=== PATIENT | female | born 1995 | race Caucasian/White ===

== ENCOUNTER → 2017-10-23 10:50 | Outpatient (CLI) | payer OTHER, MEDICAID, SELFPAY ==
[2017-10-23 15:49] LABS: HIV 1 and 2 Antibody NEGATIVE (NEGATIVE); Hep C Virus Ab w/Reflex Quant NEGATIVE s/c (NEGATIVE)
[2017-10-27 15:49] LABS: HSV 2 IGG AB < 0.90 index (< 0.90); HSV1IGG 6.94 index (< 0.90)
== END ==
PROVIDERS: PCP Internal Medicine; Visit Provider Obstetrics & Gynecology
DX: Z34.91 Encounter for supervision of normal pregnancy, unspecified, first trimester (principal)
CPT/HCPCS: 36415; 86695; 86696; 86703; 86787; 86803; 86850; 86900; 86901; 87086

== ENCOUNTER 2017-11-20 15:59 | Observation (INO) | payer OTHER, MEDICAID, SELFPAY ==
[2017-11-20] MEDS: LACTATED RINGERS 1,000 ML 1000 ML IV (16:45)
[2017-11-20] MEDS: ACETAMINOPHEN 325 MG TABLET 650 MG PO (17:16)
[2017-11-20] MEDS: ONDANSETRON 4 MG/2 ML INJ IV (17:16)
== END 2017-11-20 18:10 | disposition home or self-care (01) ==
PROVIDERS: Admitting Provider Internal Medicine; Family Provider Internal Medicine; PCP Internal Medicine; Visit Provider Internal Medicine
DX: O21.0 Mild hyperemesis gravidarum (principal); Z3A.11 11 weeks gestation of pregnancy
CPT/HCPCS: 96360; G0378; G0379; J2405

== ENCOUNTER → 2018-01-07 15:00 | Oncology outpatient (ONC) | payer OTHER, MEDICAID, SELFPAY ==
[2017-12-01 15:45] VITALS: BP 122/69; PULSE 88; RESP 16; TEMP 37; O2SAT 95
[2017-12-01] MEDS: ONDANSETRON 4 MG/2 ML INJ IV (15:50)
[2017-12-01] MEDS: LACTATED RINGERS 1,000 ML 1000 ML IV (15:50)
[2017-12-07 15:11] VITALS: BP 118/69; PULSE 83; RESP 16; TEMP 36.8; O2SAT 97
[2017-12-07] MEDS: LACTATED RINGERS 1,000 ML 1000 ML IV (15:17)
[2017-12-07] MEDS: ONDANSETRON 4 MG/2 ML INJ IV (15:36)
[2017-12-15] MEDS: LACTATED RINGERS 1,000 ML 1000 ML IV (15:20)
[2017-12-15] MEDS: ONDANSETRON 4 MG/2 ML INJ IV (15:20)
[2017-12-15 15:52] VITALS: BP 108/77; PULSE 84; RESP 16; TEMP 36.7; O2SAT 97
[2017-12-21] MEDS: LACTATED RINGERS 1,000 ML 1000 ML IV (11:45)
[2017-12-21] MEDS: ONDANSETRON 4 MG/2 ML INJ IV (11:47)
[2017-12-21 11:57] VITALS: BP 111/66; PULSE 79; RESP 16; TEMP 37.1; O2SAT 96
[2017-12-25 15:33] VITALS: BP 116/69; PULSE 82; RESP 16; TEMP 36.8; O2SAT 96
[2017-12-25] MEDS: LACTATED RINGERS 1,000 ML 1000 ML IV (15:35)
[2017-12-25] MEDS: ONDANSETRON 4 MG/2 ML INJ IV (15:36)
[2017-12-29 09:17] VITALS: BP 115/69; PULSE 86; RESP 16; TEMP 36.8; O2SAT 94
[2017-12-29] MEDS: ONDANSETRON 4 MG/2 ML INJ IV (09:41)
[2017-12-29] MEDS: LACTATED RINGERS 1,000 ML 1000 ML IV (09:44)
[2018-01-07] MEDS: LACTATED RINGERS 1,000 ML 1000 ML IV (15:57)
[2018-01-07] MEDS: ONDANSETRON 4 MG/2 ML INJ IV (16:03)
[2018-01-07 16:26] VITALS: BP 119/62; PULSE 80; RESP 16; TEMP 36.6; O2SAT 98
== END ==
PROVIDERS: Family Provider Internal Medicine; PCP Internal Medicine; Visit Provider Specialist
DX: O21.0 Mild hyperemesis gravidarum (principal)
CPT/HCPCS: 96360; 96361; 96374; 96375; J2405

== ENCOUNTER → 2018-01-25 07:18 | Outpatient (CLI) | payer OTHER, MEDICAID, SELFPAY ==
--- NOTE | 2018-01-25 07:19 | DI.US.S_ITS ---
PROCEDURE: US OB >= 14 WEEKS FETUS INDICATIONS: ANATOMY OUTSIDE/PRIOR DATING DATA: Last menstrual period (LMP): 09/02/17. LMP-based estimated date of delivery (CLAU): 06/09/18. First dating scan (date and location): 11/04/17. Estimated date of delivery (CLAU) from first dating scan: 06/08/18. TECHNIQUE: Real-time scanning was performed of the fetus, with image documentation and biometric measurements. Endovaginal scanning: None. COMPARISON: [facility], , OB >= 14 WEEKS FETUS, 12/29/2017, 8:33. FINDINGS: General: A single living intrauterine gestation is present. Presentation: Vertex Placenta: Placental position is anterior, without previa. Amniotic fluid index: 11.3 cm, normal range is 5-24 cm. heart rate: 133 beats per minute. Maternal cervical canal: 3.3 cm long. Normal lower limit is 2.5 cm. biometrics: Biparietal diameter: 4.8 cm, 20 weeks 4 days Head circumference: 18.4 cm, 20 weeks 5 days Abdominal circumference: 16.0 cm, 21 weeks one day Femur length: 3.4 cm, 20 week 5 day Estimated gestational age from initial scan: 20 week six-day Composite gestational age from present scan: 20 weeks 6 days Estimated weight and percentile: 382 g, 45% Measurement variability for biometric dating: +/- 7 days from 14 weeks to 15 weeks 6 days gestation, +/- 10 days from 16 weeks to 21 weeks 6 days gestation, +/- 2 weeks from 22 weeks to 27 weeks 6 days gestation, +/- 3 weeks for 28 weeks gestation or later. weight reference: 4500 g or EFW >90/95% is considered macrosomia or large for gestational age. EFW <10% is small for gestational age. EFW 5% or less is considered intra-uterine growth restriction. Anatomic survey: Neuro: Ventricles are non-dilated at less than 10 mm. Cisterna magna is normal at 3-11 mm. Cerebellum is normal in size and morphology. Nuchal skin fold: Normal at less than 6 mm between 14-21 weeks gestational age. Face: Nose and lips, facial profile are normal. Spine: No evidence for spina bifida. Heart: 4-chambered heart is present, with normal ventricular outflow tracts. Diaphragm: Diaphragm is intact. Stomach: Left-sided stomach is present. Kidneys: No hydronephrosis. Normal is less than 5 mm in 2nd trimester, less than 7 mm in 3rd trimester. Cord: 3-vessel cord has orthotopic insertion. Bladder: Normal in size. Extremities: All 4 extremities identified. IMPRESSION: Single live intrauterine with fetus in vertex presentation. heart rate is 133 beats per minute. Estimated gestational age infant current study is 20 weeks 6 days. Normal anatomic survey. Dictated by: Blaine Whatley M.D. on 01/25/2018 at 8:28 Approved by: Blaine Whatley M.D. on 01/25/2018 at 9:08
== END ==
PROVIDERS: Family Provider Internal Medicine; PCP Internal Medicine; Visit Provider Obstetrics & Gynecology
DX: Z34.02 Encounter for supervision of normal first pregnancy, second trimester (principal); Z3A.20 20 weeks gestation of pregnancy
CPT/HCPCS: 76811

== ENCOUNTER → 2018-01-26 09:12 | Outpatient (CLI) | payer OTHER, MEDICAID, SELFPAY ==
[2018-02-01 16:26] LABS: AFP, Serum 67.7 ng/mL; Calc Gestational Age 18.6; Cigarette Smoker NOT GIVEN; Donated Egg N; Donor Egg Age NOT GIVEN; Estriol, Free 1.95 ng/mL; Inhibin A, Dimeric 202 pg/mL; Maternal Ethnicity CAUCASIAN; Maternal Weight 154 lbs; Number of Fetuses 1; Previous Pregnancy Down Syndro N; hCG, MoM 2.91; hCG, Serum 64.1 IU/mL
== END ==
PROVIDERS: PCP Internal Medicine; Visit Provider Obstetrics & Gynecology
DX: Z34.92 Encounter for supervision of normal pregnancy, unspecified, second trimester (principal); Z3A.19 19 weeks gestation of pregnancy
CPT/HCPCS: 36415; 82105; 82677; 84702; 86336

== ENCOUNTER 2018-02-05 10:33 | Observation (INO) | payer OTHER, MEDICAID, SELFPAY ==
--- NOTE | 2018-02-05 | DI.US.S_ITS ---
PROCEDURE: US OB LIMITED INDICATIONS: vaginal bleeding at 22 weeks OUTSIDE/PRIOR DATING DATA: Last menstrual period (LMP): 09/02/17. LMP-based estimated date of delivery (CLAU): 06/09/18. First dating scan (date and location): 11/04/17, by Dr. Villalta. Estimated date of delivery (CLAU) from first dating scan: 06/08/18, by Dr. Villalta. TECHNIQUE: Real-time scanning was performed of the fetus, with image documentation. Endovaginal scanning: Not needed for this study COMPARISON: None. FINDINGS: A single living intrauterine gestation is present. Presentation: Vertex Placenta: Placental position is anterior, without previa. Amniotic fluid index: 13.6 cm, normal range is 5-24 cm. heart rate: 150 beats per minute. Maternal cervical canal: 3.4 cm long. Normal lower limit is 2.5 cm. Estimated gestational age from initial scan: 22 weeks 3 days. Note: No abruption or previa found. The inferior tip of the placenta is 2.8 cm from the internal os of the cervical canal. IMPRESSION: No source of current vaginal bleeding at approximately 22 weeks gestation. No abruption or placenta previa is present. Dictated by: Ephraim Ram M.D. on 02/05/2018 at 12:15 Approved by: Ephraim Ram M.D. on 02/05/2018 at 12:19
--- NOTE | 2018-02-05 11:17 | P.OP_ITS ---
Operative Date/Time/Diagnoses Date of procedure: 02/05/18 Time of procedure: 11:13 Pre-op diagnosis: Endometrial polyp Infertility Post-op diagnosis: same Procedure: D&C hysteroscopy Hysterosalpingogram Indications: Endometrial polyp on ultrasound Infertility Surgeon: Rosalba Villalta Anesthesia Type: General Operative Notes Findings: 6 week size slightly retroverted uterus Mid uterus anterior polyp Normal fallopian tube openings HSG Normal contours of the uterus. Spillage from both tubes Closure Type: not applicable Specimen(s): other (Fragments of endometrial polyp) Applied: catheter Estimated blood loss (mL): 10 Blood products transfused: none Procedure in detail: After informed consent was obtained, the patient was taken to the operating room where she was placed in the dorsal supine position. After adequate LMA general anesthesia was achieved, she was placed in the dorsal lithotomy position, and prepped and draped in the usual sterile fashion. A bivalve speculum was placed into the vagina. The anterior lip of the cervix was grasped with a single-tooth tenaculum. The hysterosalpingogram catheter passed easily into the endometrial cavity. The balloon was inflated with 3 cc of air. 15 cc of Isovue 300 were injected into the uterus under direct fluoroscopic examination. The contours of the uterus were normal. There was spillage from both tubes. The balloon was deflated. The hysterosalpingogram catheter was removed from the uterus. The cervix was further dilated to the #8 Hegar dilator. The hysteroscope passed easily into the endometrial cavity. Initial inspection with the hysteroscope revealed both fallopian tube ostia. There was an anterior endometrial polyp in the mid portion of the uterus. This was resected in 5 pieces with settings at 80 cut and 40 cautery. There was minimal amount of bleeding. Sharp curettage was performed to remove all of the remaining pieces. The instruments were removed from the uterus. The single- tooth tenaculum was removed from the anterior lip of the cervix. The bivalve speculum was removed from the vagina. Sponge, lap, and instrument counts were correct x2. The patient tolerated the procedure well, and was taken to PACU in stable condition. Complications: none Post-operative Condition: stable Disposition: PACU Plan for aftercare: Home after recovery
== END 2018-02-05 11:56 | disposition home or self-care (01) ==
PROVIDERS: Admitting Provider Obstetrics & Gynecology; PCP Internal Medicine; Visit Provider Obstetrics & Gynecology
DX: O46.92 Antepartum hemorrhage, unspecified, second trimester (principal); Z3A.22 22 weeks gestation of pregnancy
CPT/HCPCS: 59025; 76815; G0378; G0379

== ENCOUNTER → 2018-02-09 10:43 | Outpatient (CLI) | payer OTHER, MEDICAID, SELFPAY | PROVIDERS: Family Provider Internal Medicine; PCP Internal Medicine; Visit Provider Obstetrics & Gynecology | DX: R31.9 Hematuria, unspecified (principal) | CPT/HCPCS: 87086 ==

== ENCOUNTER → 2018-03-06 10:31 | Outpatient (CLI) | payer OTHER, MEDICAID, SELFPAY ==
[2018-03-06 12:29] LABS: Hematocrit 31.5 % (36-46); Hemoglobin 11.1 g/dL (12.0-16.0)
[2018-03-06 16:03] LABS: GTT (PREG) 1 Hour PP 50gm Dose 108 mg/dL (76-139)
== END ==
PROVIDERS: Family Provider Internal Medicine; PCP Internal Medicine; Visit Provider Obstetrics & Gynecology
DX: Z34.82 Encounter for supervision of other normal pregnancy, second trimester (principal)
CPT/HCPCS: 36415; 82950; 85014; 85018

== ENCOUNTER → 2018-05-12 08:26 | Outpatient (CLI) | payer OTHER, MEDICAID, SELFPAY ==
[2018-05-13 14:32] LABS: Strep Grp B PCR NEG for Grp B Strep
== END ==
PROVIDERS: Family Provider Internal Medicine; PCP Internal Medicine; Visit Provider Obstetrics & Gynecology
DX: Z34.03 Encounter for supervision of normal first pregnancy, third trimester (principal); Z3A.36 36 weeks gestation of pregnancy
CPT/HCPCS: 87653

== ENCOUNTER 2018-05-18 06:54 | Observation (INO) | payer OTHER, MEDICAID, SELFPAY | END 2018-05-18 09:03 | disposition home or self-care (01) | PROVIDERS: Admitting Provider Obstetrics & Gynecology; Family Provider Internal Medicine; PCP Internal Medicine; Visit Provider Obstetrics & Gynecology | DX: Z34.83 Encounter for supervision of other normal pregnancy, third trimester (principal); Z3A.36 36 weeks gestation of pregnancy | CPT/HCPCS: 59025; 59412; 76815; G0378; G0379 ==

== ENCOUNTER 2018-05-30 19:03 | Outpatient (CLI) | payer OTHER, MEDICAID, SELFPAY ==
--- NOTE | 2018-05-31 10:38 | PM.OBTRLD ---
Visit Information Visit Information Date of evaluation: 05/30/18 Primary OB Provider: Rosalba Villalta On-call OB Provider: Carolyn Ferrer Reason for Evaluation: Yes rule out labor Vital Signs Vital Signs: 131/76, pulse 101 Review of Systems Review of Systems Patient complaining of contractions, no leakage of fluid, no decrease in movement. Evaluation Evaluation Baseline heart rate: 130 Variability: Moderate (11-25) monitor accelerations: Present monitor decelerations: Absent Contraction Frequency (minutes): 7 Uterine Contraction Intensity: Mild Category of Tracing: I Diagnosis, Plan/Disposition Final Diagnosis (1) Premature uterine contractions in third trimester, antepartum: Current Visit: No Status: Acute (2) 38 weeks gestation of : Current Visit: No Status: Acute Plan/Disposition Plan: Patient with mild contractions but not in labor. She was discharged home to return if she has rupture membranes, increased contractions, decreased movement.
== END 2018-05-30 20:05 | disposition home or self-care (01) ==
LOC: LABOR 19:46 → OB 06-02 13:12
PROVIDERS: Family Provider Internal Medicine; PCP Internal Medicine; Visit Provider Specialist
DX: O32.1XX0 Maternal care for breech presentation, not applicable or unspecified (principal); Z3A.38 38 weeks gestation of pregnancy
CPT/HCPCS: 59025; G0378; G0379

== ENCOUNTER 2018-06-04 05:48 | Inpatient (IN) | payer OTHER, MEDICAID, SELFPAY ==
[2018-06-04] VITALS (11 sets, daily range): BP systolic 98–129; BP diastolic 48–83; PULSE 77–92; RESP 12–18; TEMP 36.1–37.1; O2SAT 96–97
[2018-06-04 07:38] LABS: Add Manual Diff / Slide Review NO; Basophils Percent Auto 0.2 % (0-2); Eosinophils Percent Auto 0.7 % (2-4); Hematocrit 35.1 % (36-46); Hemoglobin 12.2 g/dL (12.0-16.0); Lymphocytes Percent Auto 20.3 % (25-40); Mean Corpuscular HGB Conc 34.6 % (30-36); Mean Corpuscular Hemoglobin 30.9 PG (26-34); Mean Corpuscular Volume 89.1 fL (80-100); Monocytes Percent Auto 7.2 % (3-14); Neutrophils Absolute Auto 7700 /uL (1500-7000); Neutrophils Percent Auto 71.6 % (50-75); Platelet Count 246 X10^3/uL (150-400); Red Blood Cell Count 3.94 X10^6/uL (4.0-5.2); Red Cell Distribution Width 14.2 % (11.6-14.8); White Blood Cell Count 10.7 X10^3/uL (4.5-11.0)
--- NOTE | 2018-06-04 07:50 | PM.PREOP ---
Pre-operative Note Interval Note Pre-op Check: Yes History & Physical Reviewed by Physician Changes: No
[2018-06-04] MEDS: CEFAZOLIN 2 GM/100 ML FROZ.PIGGY IV (08:00)
--- NOTE | 2018-06-04 08:30 | SUR.OPER ---
Supine on Padded OR bed, head on pillow, safety belt at thigh, arms secured on padded arm boards at <90 degrees abduction. Bump under right buttock. Legs uncrossed with pillow under knees, gel pad to heels, tape over blanket to lower legs.
[2018-06-04] MEDS: LACTATED RINGERS 1,000 ML 100 ML IV ×2 (08:56→14:42)
[2018-06-04] MEDS: KETOROLAC 30 MG/ML VIAL IV ×3 (11:08→23:42)
[2018-06-04] MEDS: HYDROCODONE/ACET 5/325 TABLET 1 TAB PO (11:13)
[2018-06-04] MEDS: HYDROCODONE/ACET 5/325 TABLET 2 TAB PO ×3 (15:26→23:54)
[2018-06-05 03:55] VITALS: TEMP 37.1
[2018-06-05] MEDS: HYDROCODONE/ACET 5/325 TABLET 2 TAB PO ×3 (03:55→14:22)
[2018-06-05] MEDS: KETOROLAC 30 MG/ML VIAL IV (05:46)
[2018-06-05 06:22] LABS: Hemoglobin 8.3 g/dL (12.0-16.0)
[2018-06-05 06:28] LABS: Hematocrit 23.7 % (36-46)
[2018-06-05 09:57] VITALS: TEMP 37.2
[2018-06-05] MEDS: PRENATAL VIT,CALC/IRON/FOLIC 1 TABLET 1 TAB PO (09:57)
[2018-06-05] MEDS: LANOLIN OINT 7 GM 1 APPLIC TOP (09:57)
[2018-06-05] MEDS: DOCUSATE 250 MG CAPSULE PO (09:57)
--- NOTE | 2018-06-05 14:20 | PM.GYNOP.1 ---
Operative Date/Time/Diagnoses Date of procedure: 06/04/18 Time of procedure: 09:30 Pre-op diagnosis: 39 weeks gestation Persistent breech presentation Post-op diagnosis: same Procedure: Procedures Operation Date: 06/04/18 07:45 Actual Procedures Side Surgeon p Section-Primary Rosalba Villalta MD Indications: 39 weeks gestation Persistent breech presentation Surgeon: Rosalba Villalta Photographic Equipment Technician: Maryjane Adamson Anesthesia Type: Spinal Operative Notes Findings: Live female infant in the dorita breech presentation Normal uterus, tubes, and ovaries Closure Type: primary Specimen(s): other (Placenta, cord bloods) Applied: catheter Estimated blood loss (mL): 500 Blood products transfused: none Procedure in detail: The patient was taken to the operating room where she was placed in the seated position. Spinal anesthesia was administered. She was then placed in the dorsal supine position with a leftward tilt. She was prepped and draped in the usual sterile fashion. A timeout was performed. After spinal analgesia was found to be adequate, a Pfannenstiel skin incision was made 2 fingerbreadths above the pubic symphysis and carried through to the underlying layer fascia. The fascia was nicked in the midline, and the incision extended bilaterally with the Kruger scissors. The superior aspect of the fascial incision was grasped with a Shameka clamps, elevated, and the underlying rectus muscles dissected off sharply and bluntly. Attention was then turned to the inferior aspect of this incision which in a similar fashion was grasped with a Shameka clamps, elevated, and the underlying rectus muscles dissected off sharply and bluntly. The rectus muscles were in the midline. The peritoneum was identified, grasped between 2 hemostats, and entered sharply with the Metzenbaum scissors. This incision was extended superiorly and inferiorly with good visualization of the bladder. The bladder blade was inserted. The vesicouterine peritoneum was identified, grasped with the pickup, and entered sharply with the Metzenbaum scissors. This incision was extended bilaterally, and the bladder flap was created digitally. The bladder blade was reinserted. The lower uterine segment was incised in a transverse fashion with the scalpel. Upon entering the amniotic sac there was a moderate amount of meconium-stained amniotic fluid. The was delivered by total breech extraction. The nose and mouth were suctioned with bulb suction. The cord was double clamped and cut. The infant was handed off to waiting RN and RT. A piece of the cord closest to the and was cleaned x3 with Betadine. Cord blood collection was obtained with approximately 150-200 cc of blood collected. A 12 cm segment of cord was collected. The placenta was then delivered manually. The uterus was cleared of all clots and debris. The uterine incision was repaired with #1 chromic in a running interlocking fashion, and a second layer the same suture was used for an imbricating layer. Hemostasis was achieved. The tubes and ovaries were examined and were found to be normal. The gutters were cleared of all clots and debris. The bladder flap was reapproximated using 2-0 Vicryl in a running fashion. The parietal peritoneum was closed using 2-0 Vicryl in a running fashion. The fascia was reapproximated using 0 Vicryl in a running fashion. Subcutaneous layer was copiously irrigated with warm normal saline. Five simple interrupted sutures of 3-0 Vicryl were placed to reapproximate the subcutaneous layer. The skin was closed with 4-0 undyed Vicryl in a subcuticular fashion. Steri-Strips were placed. An Aquacel dressing was placed. The uterus was expressed of a small amount of old blood. Sponge, lap, and instrument counts were correct x-2. The patient tolerated the procedure well, and was taken to PACU in stable condition. Complications: none Post-operative Condition: stable Disposition: PACU Plan for aftercare: To center after recovery
[2018-06-05] MEDS: IBUPROFEN 600 MG TABLET PO (14:21)
--- NOTE | 2018-06-05 14:42 | PM.OBPN.1 ---
Subjective - OB Interval history: Patient is a 23-year-old 1 para 1 postop day # 1 status post primary section for breech presentation at 39 weeks gestation. Patient comments: pain well controlled, incisional pain (Mild), tolerating diet and other (Voiding without the catheter) baby status: doing well and nursing well feeding status: exclusively breast feeding Narrative: Bleeding is tapering. Pain is well controlled with Vicodin and Toradol. Patient is tolerating a diet. She has been able to void without the catheter. Date Patient Seen: 06/05/18 Time Patient Seen: 14:43 Exam Vital Signs (past 8 hours): - 06/05/18 09:57 Temperature 99 F Oxygen Delivery Method Room Air Narrative Exam Narrative: Generally: Patient lying in bed, no acute distress Lungs: Clear to auscultation bilaterally Cardiovascular: Regular rate and rhythm Fundus: Firm at U -1 Incision: Clean dry and intact with Aquacel dressing Extremities: Trace edema, negative Homans Objective Labs Result Diagrams: 06/05/18 06:10 Labs: Laboratory Results - last 24 hr 06/05/18 06:10 Hgb 8.3 L Hct 23.7 L Assessment & Plan (1) Status post primary low transverse section: Status: Acute Assessment and plan: Assessment: Postop day # 1 status post primary section for persistent breech presentation at 39 weeks Patient and baby doing well Anemia related to the surgery Plan: Anticipate discharge 06/06/2018 Will send home on iron and vitamins Continue routine postop care for now Current Visit: Yes Time Spent With Patient Total time spent is greater than 50% in coordination of care (as documented) at patient's floor/unit and/or counseling patient: less than 15 minutes
[2018-06-05] MEDS: HYDROCODONE/ACET 5/325 TABLET 1 TAB PO (19:44)
[2018-06-06] MEDS: IBUPROFEN 600 MG TABLET PO (05:44)
[2018-06-06 10:53] VITALS: BP 126/64; PULSE 88; RESP 17; TEMP 37.3
[2018-06-06] MEDS: PRENATAL VIT,CALC/IRON/FOLIC 1 TABLET 1 TAB PO (11:21)
[2018-06-06] MEDS: DOCUSATE 250 MG CAPSULE PO (11:21)
[2018-06-06 11:48] VITALS: BP 126/64; PULSE 88; RESP 17; TEMP 37.3
--- NOTE | 2018-06-06 12:19 | PM.DS.1 ---
History of Present Illness Date Patient Seen: 06/06/18 Time Patient Seen: 12:20 Chief complaint: [id number] Narrative: Patient is a 23-year-old 1 para 1 postop day # 2 status post primary low-transverse section at 39 weeks gestation for persistent breech presentation Discharge Providers Date of admission: 06/04/18 05:48 Primary care physician: Hunter Herrera MD Consults: 06/04/18 12:09 Consult to Forest Technician Routine Comment: Discharge provider: Rosalba Villalta MD Discharge Date: 06/06/18 Summary Discharge Diagnosis: 39 weeks gestation Persistent breech presentation Meconium-stained amniotic fluid Primary low-transverse section Postoperative anemia Hospital Course: The patient was admitted on 06/04/2018 for scheduled primary section at 39 weeks gestation for persistent breech presentation. She underwent a primary low-transverse section without complication. She had a postoperative hematocrit of 23. This was due to bleeding during the procedure. On post op day # 1 her catheter was removed and she was able to void spontaneously. She tolerated a diet. She was ambulating. She had a bowel movement prior to discharge. Exam Vital Signs (past 8 hours): - 06/06/18 10:53 06/06/18 11:48 Temperature 99.2 F 99.2 F Pulse Rate 88 88 Respiratory Rate 17 17 Blood Pressure 126/64 126/64 Oxygen Delivery Method Room Air Narrative Exam Narrative: Generally: Patient is sitting up in bed, no acute distress Lungs: Clear to auscultation bilaterally Cardiovascular: Regular rate and rhythm Fundus: Firm at U -2 Abdomen: Good bowel sounds Incision: Clean dry and intact with Aquacel dressing Extremities: Negative Homans, no edema Objective Labs Result Diagrams: 06/05/18 06:10 Discharge Plan Discharge Plan Patient Disposition: Home Discharge Med Rec/Prescriptions Prescriptions: New hydrocodone-acetaminophen [Shipman] 5-325 mg tablet 1 tab PO Q4-6H PRN (Reason: post op pain) Qty: 20 RF: 0 Continue nadolol 40 MG tablet 40 mg PO QDAY Qty: 30 RF: 5 almotriptan malate 12.5 MG tablet 12.5 mg PO SEE INSTRUCTIONS PRNQty: 6 RF: 11 sumatriptan succinate 50 MG tablet 50 mg PO SEE INSTRUCTIONS Qty: 9 RF: 11 Double Electric Breast Pump 1 ea [id number] .prn Qty: 1 RF: 0 Discontinued ondansetron 4 MG tablet,disintegrating Qty: 0 RF: 0 nortriptyline 10 MG capsule 10 mg PO HS Qty: 30 RF: 11 metoclopramide HCl 10 mg tablet 10 mg PO TID Qty: 30 RF: 3 loperamide [Anti-Diarrheal (loperamide)] 2 mg tablet 2 mg PO Q2-4H PRN (Reason: loose stool) Qty: 30 RF: 0 ondansetron [Zofran ODT] 4 mg tablet,disintegrating 4 mg PO Q6H Qty: 20 RF: 1 Follow up/Referrals: Rosalba Villalta MD [Physician] - 1 Week (Aquacel removal Pt will call the office for appointment) Hunter Herrera MD [Primary Care Provider] - Provider Discharge Instructions Activity: No heavy lifting No intercourse Skin/Wound/Dressing Care Report to your healthcare provider any signs of infection, such as:: chills, fever, increased pain, unusual drainage and unusual redness Dressing: Do not remove Visit Report/Discharge Packet Instructions: DI for Heart Failure, DI for Stand Alone Forms: Discharge: Care Visit Report Forms: Congestive Heart Failure, Stroke Signs & Symptoms Discharge Data Primary Care Provider: Hunter Herrera Attending Provider: Rosalba Villalta Admit Date/Time: 06/04/18 05:48
--- NOTE | 2018-06-06 12:24 | P.DS_ITS ---
History of Present Illness Date Patient Seen: 06/06/18 Time Patient Seen: 12:20 Chief complaint: [id number] Narrative: Patient is a 23-year-old 1 para 1 postop day # 2 status post primary low-transverse section at 39 weeks gestation for persistent breech presentation Discharge Providers Date of admission: 06/04/18 05:48 Primary care physician: Hunter Herrera MD Consults: 06/04/18 12:09 Consult to Aircraft Servicer Routine Comment: Discharge provider: Rosalba Villalta MD Discharge Date: 06/06/18 Summary Discharge Diagnosis: 39 weeks gestation Persistent breech presentation Meconium-stained amniotic fluid Primary low-transverse section Postoperative anemia Hospital Course: The patient was admitted on 06/04/2018 for scheduled primary section at 39 weeks gestation for persistent breech presentation. She underwent a primary low-transverse section without complication. She had a postoperative hematocrit of 23. This was due to bleeding during the procedure. On post op day # 1 her catheter was removed and she was able to void spontaneously. She tolerated a diet. She was ambulating. She had a bowel movement prior to discharge. Exam Vital Signs (past 8 hours): - 06/06/18 10:53 06/06/18 11:48 Temperature 99.2 F 99.2 F Pulse Rate 88 88 Respiratory Rate 17 17 Blood Pressure 126/64 126/64 Oxygen Delivery Method Room Air Narrative Exam Narrative: Generally: Patient is sitting up in bed, no acute distress Lungs: Clear to auscultation bilaterally Cardiovascular: Regular rate and rhythm Fundus: Firm at U -2 Abdomen: Good bowel sounds Incision: Clean dry and intact with Aquacel dressing Extremities: Negative Homans, no edema Objective Labs Result Diagrams: 06/05/18 06:10 Discharge Plan Discharge Plan Patient Disposition: Home Discharge Med Rec/Prescriptions Prescriptions: New hydrocodone-acetaminophen [Bailey] 5-325 mg tablet 1 tab PO Q4-6H PRN (Reason: post op pain) Qty: 20 RF: 0 Continue nadolol 40 MG tablet 40 mg PO QDAY Qty: 30 RF: 5 almotriptan malate 12.5 MG tablet 12.5 mg PO SEE INSTRUCTIONS PRNQty: 6 RF: 11 sumatriptan succinate 50 MG tablet 50 mg PO SEE INSTRUCTIONS Qty: 9 RF: 11 Double Electric Breast Pump 1 ea [id number] .prn Qty: 1 RF: 0 Discontinued ondansetron 4 MG tablet,disintegrating Qty: 0 RF: 0 nortriptyline 10 MG capsule 10 mg PO HS Qty: 30 RF: 11 metoclopramide HCl 10 mg tablet 10 mg PO TID Qty: 30 RF: 3 loperamide [Anti-Diarrheal (loperamide)] 2 mg tablet 2 mg PO Q2-4H PRN (Reason: loose stool) Qty: 30 RF: 0 ondansetron [Zofran ODT] 4 mg tablet,disintegrating 4 mg PO Q6H Qty: 20 RF: 1 Follow up/Referrals: Rosalba Villalta MD [Physician] - 1 Week (Aquacel removal Pt will call the office for appointment) Hunter Herrera MD [Primary Care Provider] - Provider Discharge Instructions Activity: No heavy lifting No intercourse Skin/Wound/Dressing Care Report to your healthcare provider any signs of infection, such as:: chills, fever, increased pain, unusual drainage and unusual redness Dressing: Do not remove Visit Report/Discharge Packet Instructions: DI for Heart Failure, DI for Stand Alone Forms: Discharge: Care Visit Report Forms: Congestive Heart Failure, Stroke Signs & Symptoms Discharge Data Primary Care Provider: uHnter Herrera Attending Provider: Rosalba Villalta Admit Date/Time: 06/04/18 05:48
== END 2018-06-06 12:30 | disposition home or self-care (01) | DRG 540 ==
PROVIDERS: Admitting Provider Obstetrics & Gynecology; Family Provider Internal Medicine; PCP Internal Medicine; Visit Provider Obstetrics & Gynecology
PROC: 10D00Z1 Extraction of Products of Conception, Low, Open Approach (ICD-10-PCS; CPT 59514; principal; 2018-06-04 07:45)
DX: O32.1XX0 Maternal care for breech presentation, not applicable or unspecified (principal); Z3A.39 39 weeks gestation of pregnancy; Z37.0 Single live birth; D62 Acute posthemorrhagic anemia
CPT/HCPCS: 36415; 59050; 59514; 85014; 85018; 85025; 86850; 86870; 86900; 86901; J0461; J0690; J1885; J2250; J2405; J2590

== ENCOUNTER → 2019-06-20 10:22 | Outpatient (CLI) | payer SELFPAY ==
--- NOTE | 2019-06-20 | DI.CT.S_ITS ---
PROCEDURE: CT ABDOMEN PELVIS W CON INDICATIONS: PERIUMBILICAL ABDOMINAL PAIN TECHNIQUE: After the administration of oral and intravenous contrast, 5 mm thick sections acquired from the diaphragms to the symphysis. 5 mm thick coronal and sagittal reformats were performed. For radiation dose reduction, the following was used: automated exposure control, adjustment of mA and/or kV according to patient size. COMPARISON: None. FINDINGS: Image quality: Excellent. ABDOMEN: Lung bases: Lung bases are clear. Heart size is normal. Solid organs: Liver is normal in size noted to be mildly hypodense when compared to the spleen. No focal liver lesions are evident. Gallbladder is not enlarged lymph and. Biliary system is non-dilated. Pancreas enhances normally. Spleen is normal in size and enhancement. No adrenal nodules. Kidneys are normal in size and enhancement, without hydronephrosis. Peritoneum and bowel: The stomach is unremarkable. The small bowel loops are nondilated. A moderate amount of residual stool is seen within the proximal colon. Nonspecific focal wall thickening is evident involving the left lateral aspect of the transverse colon (image 31, series 2). No surrounding inflammation is evident within the adjacent mesentery. The appendix is not definitely seen. No free fluid, loculated fluid collection or free air is evident. Nodes and vessels: No retroperitoneal or mesenteric adenopathy. Aorta and inferior vena cava are normal in caliber. Bones: No acute fracture or suspicious osseous lesion is evident. No significant degenerative changes are appreciated. PELVIS: Genitourinary: Bladder wall thickness is normal. The uterus is normal in size. There is a focal area of low density identified involving the anterior segment of the lower uterine segment, likely related to prior section. The right ovary is slightly prominent in size related to 2.3 cm right ovarian cyst. The left ovary is normal in size. Miscellaneous: No inguinal hernias or adenopathy. A small amount of free fluid is seen within the pelvis adjacent to the uterus. There is no loculated fluid collection or free air. Bones: No suspicious bony lesions. No acute pelvic fractures are evident. IMPRESSION: 1. No definite acute abnormality of the abdomen or pelvis. 2. Small right ovarian cyst is of uncertain significance. 3. Moderate residual stool within the colon may represent constipation. 4. Focal wall prominence involving the left lateral transverse colon is of doubtful significance and likely related to incomplete distention. However, the possibility of focal colitis or a bowel mass cannot be completely excluded and clinical correlation is recommended. 5. Probable hepatic steatosis. 6. Trace free fluid within the pelvis is likely physiologic. Dictated by: Sascha Barbour M.D. on 06/20/2019 at 10:37 Approved by: Sascha Barbour M.D. on 06/20/2019 at 10:42
== END ==
PROVIDERS: PCP Internal Medicine; Visit Provider Physician Assistant
DX: R10.33 Periumbilical pain (principal); N83.201 Unspecified ovarian cyst, right side
CPT/HCPCS: 74177; Q9967

== ENCOUNTER → 2019-06-20 14:38 | Outpatient (CLI) | payer SELFPAY ==
[2019-06-20 17:06] LABS: Add Manual Diff / Slide Review NO; Basophils Absolute Auto 0 /uL (0-100); Basophils Percent Auto 0.4 % (0-2); Eosinophils Absolute Auto 100 /uL (0-450); Eosinophils Percent Auto 0.9 % (2-4); Hematocrit 40.8 % (36-46); Hemoglobin 14.1 g/dL (12.0-16.0); Lymphocytes Absolute Auto 2700 /uL (1100-4500); Lymphocytes Percent Auto 28.1 % (25-40); Mean Corpuscular HGB Conc 34.4 % (30-36); Mean Corpuscular Hemoglobin 30.8 PG (26-34); Mean Corpuscular Volume 89.5 fL (80-100); Monocytes Absolute Auto 500 /uL (0-900); Monocytes Percent Auto 5.6 % (3-14); Neutrophils Absolute Auto 6300 /uL (1500-7000); Platelet Count 363 X10^3/uL (150-400); Red Blood Cell Count 4.56 X10^6/uL (4.0-5.2); Red Cell Distribution Width 12.2 % (11.6-14.8); White Blood Cell Count 9.7 X10^3/uL (4.5-11.0)
[2019-06-20 17:20] LABS: Alanine Aminotransferase 14 IU/L (<35); Albumin 4.3 g/dL (3.5-5.0); Albumin Globulin Ratio 1.7 (1.0-2.8); Alkaline Phosphatase 76 U/L (38-126); Aspartate Aminotransferase 19 IU/L (14-36); Bilirubin Total 0.3 mg/dL (0.2-1.3); Blood Urea Nitrogen 11 mg/dL (7-17); Calcium 9.9 mg/dL (8.4-10.2); Carbon Dioxide 26 mmol/L (22-32); Chloride 103 mmol/L (98-107); Estimated Glomerular Filt Rate > 60.0 mL/min (>60); Globulin 2.6 g/dL (1.7-4.1); Glucose 103 mg/dL (70-100); HEMOLYSIS < 15 (0-50); Sodium 139 mmol/L (137-145); Total Protein 6.9 g/dL (6.3-8.2)
== END ==
PROVIDERS: PCP Internal Medicine; Visit Provider Physician Assistant
DX: R10.33 Periumbilical pain (principal)
CPT/HCPCS: 36415; 80053; 85025